=== PATIENT | male | born 1935 | race Caucasian/White ===

== ENCOUNTER 2019-03-28 09:46 | Observation (INO) ==
[2019-03-28 11:20] LABS: Basophils % 0.5 %; Eosinophils # 0.1 K/mcL (0.0-0.6); Eosinophils % 1.9 %; Hematocrit 38.6 % (37.5-50.1); Hemoglobin 13.1 g/dL (12.9-16.9); Immature Granulocytes % 0.5 % (0-4); Lymphocytes # 1.8 K/mcL (0.6-4.6); Lymphocytes % 28.1 %; Mean Corpuscular HGB Conc 33.9 g/dL (31.6-35.5); Mean Corpuscular Volume 88.3 fL (83.0-100.0); Mean Platelet Volume 10.4 fL (9.4-12.4); Monocytes # 0.4 K/mcL (0.0-1.3); Monocytes % 6.3 %; Platelet Count 146 K/mcL (140-400); Red Blood Count 4.37 M/mcL (4.19-5.50); Red Cell Distribution Width 13.2 % (11.5-14.5); Segmented Neutrophils % 62.7 %; White Blood Count 6.4 K/mcL (4.3-11.1)
[2019-03-28 11:47] LABS: Alanine Aminotransferase 29 Units/L (7-52); Albumin 4.1 g/dL (3.5-5.7); Albumin/Globulin Ratio 1.6 (1.1-2.2); Alkaline Phosphatase 66 Units/L (34-104); Aspartate Amino Transferase 19 Units/L (13-39); BUN/Creatinine Ratio 18 (6-26); Bilirubin,Total 1.3 mg/dL (0.3-1.0); Blood Urea Nitrogen 30 mg/dL (8-23); Calcium 8.8 mg/dL (8.6-10.3); Carbon Dioxide 26 mEq/L (23-29); Chloride 104 mEq/L (98-107); Globulin 2.5 g/dL (2.4-3.5); Glucose 108 mg/dL (70-105); Osmolality,Calculated 299 (280-300); Potassium 3.9 mEq/L (3.5-5.1); Sodium 141 mEq/L (136-145); Total Protein 6.6 g/dL (6.4-8.9); Troponin I < 0.03 ng/mL (< 0.04); eGFR For African Americans 48 (> 60); eGFR For Non-African Americans 39 (> 60)
[2019-03-28 11:49] LABS: INR 0.9; Prothrombin Time 10.7 Seconds (9.4-12.1)
[2019-03-28 11:55] LABS: Thyroid Stimulating Hormone 2.461 mcIU/mL (0.340-5.600)
[2019-03-28] MEDS ORDERED: Isovue-370 500 ML BOTTLE IVP ONE (11:59)
[2019-03-28 12:04] LABS: Bilirubin,Urine Negative (Negative); Blood,Urine Negative (Negative); Clarity,Urine Clear (Clear); Color,Urine Yellow (Yellow); Glucose,Urine (UA) Normal (Normal); Ketones,Urine Negative (Negative); Leukocyte Esterase,Urine Negative (Negative); Nitrite,Urine Negative (Negative); PH,Urine 6.5 pH Units (5.0-8.0); Protein,Urine 30 mg/dL (Neg-Trace); Urobilinogen,Urine Normal (Normal)
[2019-03-28 12:33] LABS: Bacteria,Urine None Seen per hpf (None-Few); RBC,Urine 0-3 per hpf (0-3); Squamous Epithelial Cell,Urine None Seen per lpf (None-Few)
[2019-03-28] MEDS ORDERED: amLODIPine 5 MG TABLET PO PRN (15:35)
[2019-03-29 04:54] LABS: Albumin 3.6 g/dL (3.5-5.7); Albumin/Globulin Ratio 1.6 (1.1-2.2); Bilirubin,Direct 0.2 mg/dL (0.0-0.2); Bilirubin,Indirect 0.6 mg/dL (0.0-1.0); Bilirubin,Total 0.8 mg/dL (0.3-1.0); Globulin 2.2 g/dL (2.4-3.5); Total Protein 5.8 g/dL (6.4-8.9)
[2019-03-29 04:55] LABS: Calcium 8.5 mg/dL (8.6-10.3); Potassium 4.1 mEq/L (3.5-5.1)
[2019-03-29 07:26] VITALS: BP 153/89
[2019-03-29] MEDS ORDERED: cloNIDine HCl 0.1 MG TABLET PO SCH (09:00)
[2019-03-29] MEDS ORDERED: Isosorbide MONOnitrate (24 HR) 60 MG TAB.ER.24H PO SCH (09:00)
[2019-03-29] MEDS ORDERED: Furosemide 20 MG TABLET PO SCH (09:00)
== END 2019-03-29 13:08 | disposition home or self-care (01) ==
LOC: 3BNU 09:46 → EMEROOARM 09:46 → 3BNU 14:40 → SUATTDRO 14:44
PROVIDERS: ADMIT Internal Medicine; ATTEND Internal Medicine

== ENCOUNTER 2021-12-10 09:04 | Inpatient (IN) ==
[2021-12-10] MEDS ORDERED: Acetaminophen IV 1,000 MG/100 ML BAG IVPB ONE (09:30)
[2021-12-10] MEDS ORDERED: Ondansetron 4 MG/2 ML VIAL IVP ONE (09:30)
[2021-12-10] MEDS ORDERED: Famotidine 20 MG/2 ML VIAL IVP ONE (09:30)
[2021-12-10] MEDS ORDERED: Ringers Solution, Lactated 1,000 ML IVC ONE (09:30)
[2021-12-10] MEDS ORDERED: Albuterol 2.5 MG/3 ML NEBULIZER IH ONE (09:45)
[2021-12-10] MEDS ORDERED: Naloxone 0.4 MG/ML INJ IVP PRN (10:03)
[2021-12-10] MEDS ORDERED: Albuterol 2.5 MG/3 ML NEBULIZER IH PRN (10:03)
[2021-12-10] MEDS ORDERED: Ondansetron 4 MG/2 ML VIAL IVP PRN (10:03)
[2021-12-10] MEDS ORDERED: Nitroglycerin 0.4 MG TAB.SUBL SL PRN (10:03)
[2021-12-10] MEDS ORDERED: CeFAZolin Syr 2,000MG/20 ML 2,000 MG/20 ML SYRINGE IVPB ONE (10:12)
[2021-12-10] MEDS ORDERED: MetroNIDAZOLE 500 MG/100 ML 500 MG/100 ML BAG IVPB ONE (10:12)
[2021-12-10] MEDS ORDERED: *HR* Propofol 200 MG/20 ML VIAL IVP ONE (10:25)
[2021-12-10] MEDS ORDERED: Ondansetron 4 MG/2 ML VIAL ONE (10:25)
[2021-12-10] MEDS ORDERED: *HR* Rocuronium Bromide 50 MG/5 ML VIAL ONE ×3 (10:25→13:29)
[2021-12-10] MEDS ORDERED: Lidocaine HCL 4 ML Topical Solution (Laryng-O-Jet Kit Sterile Pak) TP ONE (10:25)
[2021-12-10] MEDS ORDERED: *HR* FentaNYL (PF) 100 MCG/2 ML VIAL ONE ×2 (10:25→13:07)
[2021-12-10] MEDS ORDERED: Lidocaine -MPF 2% 2 ML VIAL ONE (10:26)
[2021-12-10] MEDS ORDERED: EPHEDrine sulfate 50 MG/10 ML VIAL IVP ONE (11:56)
[2021-12-10] MEDS ORDERED: Sugammadex Sodium 200 MG/2 ML VIAL IV ONE (15:31)
[2021-12-10] MEDS: *HR* HYDROmorphone PF 0.5 MG/0.5 ML SYRINGE IVP PRN ×2 (16:27→16:37)
[2021-12-10] MEDS ORDERED: *HR* HYDROmorphone PCA *PREMADE* 20 MG/1MG/ML (20mL) PCA VIAL IVC PRN (18:23)
[2021-12-10] MEDS ORDERED: *HR* Metoprolol 5 MG/5 ML VIAL IVP PRN (18:23)
[2021-12-10] MEDS: 0.9 % Sodium Chloride 1,000 ML IVC SCH (19:31)
[2021-12-10] MEDS: Acetaminophen IV 1,000 MG/100 ML BAG IVPB SCH (19:31)
[2021-12-10 19:43] LABS: Basophils % 0.1 %; Hematocrit 34.4 % (37.5-50.1); Hemoglobin 11.5 g/dL (12.9-16.9); Immature Granulocytes % 0.5 % (0-4); Lymphocytes # 0.6 K/mcL (0.6-4.6); Lymphocytes % 4.4 %; Mean Corpuscular HGB Conc 33.4 g/dL (31.6-35.5); Mean Corpuscular Hemoglobin 30.2 pg (28.0-33.3); Mean Corpuscular Volume 90.3 fL (83.0-100.0); Monocytes % 4.1 %; Neutrophils # 12.1 K/mcL (1.6-8.9); Platelet Count 165 K/mcL (140-400); Red Blood Count 3.81 M/mcL (4.19-5.50); Red Cell Distribution Width 13.2 % (11.5-14.5); Segmented Neutrophils % 90.9 %
[2021-12-10 19:45] LABS: Monocytes # 0.6 K/mcL (0.0-1.3); White Blood Count 13.3 K/mcL (4.3-11.1)
[2021-12-10 20:03] LABS: Calcium 8.3 mg/dL (8.6-10.3); Magnesium 1.8 mg/dL (1.6-2.6); Phosphorous 5.3 mg/dL (2.7-4.5); Potassium 3.4 mEq/L (3.5-5.1)
[2021-12-10] MEDS ORDERED: Ketorolac 30 MG/ML VIAL IVP ONE (21:00)
[2021-12-11 05:23] LABS: Magnesium 1.9 mg/dL (1.6-2.6); Phosphorous 5.4 mg/dL (2.7-4.5)
[2021-12-11] MEDS: 0.9 % Sodium Chloride 1,000 ML IVC SCH ×2 (06:04→14:37)
[2021-12-11 06:26] LABS: Basophils % 0.1 %; Hematocrit 31.5 % (37.5-50.1); Hemoglobin 10.3 g/dL (12.9-16.9); Immature Granulocytes % 0.5 % (0-4); Lymphocytes # 0.8 K/mcL (0.6-4.6); Lymphocytes % 6.6 %; Mean Corpuscular HGB Conc 32.7 g/dL (31.6-35.5); Mean Corpuscular Hemoglobin 30.1 pg (28.0-33.3); Mean Corpuscular Volume 92.1 fL (83.0-100.0); Mean Platelet Volume 10.6 fL (9.4-12.4); Monocytes # 0.5 K/mcL (0.0-1.3); Monocytes % 4.5 %; Neutrophils # 10.6 K/mcL (1.6-8.9); Platelet Count 163 K/mcL (140-400); Red Blood Count 3.42 M/mcL (4.19-5.50); Red Cell Distribution Width 13.2 % (11.5-14.5); Segmented Neutrophils % 88.3 %
[2021-12-11] MEDS: Acetaminophen IV 1,000 MG/100 ML BAG IVPB SCH ×4 (06:36→23:59)
[2021-12-11] MEDS ORDERED: *HR* Enoxaparin 40 MG/0.4 ML SYRINGE SQ SCH (07:00)
[2021-12-11 08:26] LABS: Calcium 7.3 mg/dL (8.6-10.3); Potassium 4.3 mEq/L (3.5-5.1)
[2021-12-11] MEDS ORDERED: Ketorolac 30 MG/ML VIAL IVP SCH (09:00)
[2021-12-11] MEDS: Pantoprazole 40 MG VIAL IVP SCH (09:23)
[2021-12-11] MEDS: Levothyroxine Sodium 100 MCG VIAL IVP SCH (09:23)
[2021-12-11] MEDS ORDERED: 0.9 % Sodium Chloride 1,000 ML IVC ONE (11:39)
[2021-12-11] MEDS: Furosemide 40 MG/4 ML VIAL IVP SCH (20:20)
[2021-12-11] MEDS ORDERED: Furosemide 40 MG TABLET PO SCH (21:00)
[2021-12-12] MEDS: 0.9 % Sodium Chloride 1,000 ML IVC SCH (05:35)
[2021-12-12] MEDS: *HR* Heparin 5,000 UNIT/ML VIAL SQ SCH ×2 (05:43→20:17)
[2021-12-12] MEDS: Acetaminophen IV 1,000 MG/100 ML BAG IVPB SCH ×3 (05:43→20:17)
[2021-12-12 06:54] LABS: Basophils % 0.1 %; Hematocrit 31.5 % (37.5-50.1); Hemoglobin 10.3 g/dL (12.9-16.9); Immature Granulocytes % 0.8 % (0-4); Lymphocytes # 1.4 K/mcL (0.6-4.6); Lymphocytes % 8.4 %; Mean Corpuscular HGB Conc 32.7 g/dL (31.6-35.5); Mean Corpuscular Hemoglobin 30.2 pg (28.0-33.3); Mean Corpuscular Volume 92.4 fL (83.0-100.0); Mean Platelet Volume 10.8 fL (9.4-12.4); Monocytes % 6.4 %; Neutrophils # 13.6 K/mcL (1.6-8.9); Platelet Count 144 K/mcL (140-400); Red Blood Count 3.41 M/mcL (4.19-5.50); Red Cell Distribution Width 13.7 % (11.5-14.5); Segmented Neutrophils % 84.3 %; White Blood Count 16.1 K/mcL (4.3-11.1)
[2021-12-12 07:13] LABS: Magnesium 1.9 mg/dL (1.6-2.6); Phosphorous 3.5 mg/dL (2.7-4.5); Potassium 3.4 mEq/L (3.5-5.1)
[2021-12-12] MEDS: Furosemide 40 MG/4 ML VIAL IVP SCH ×2 (09:32→20:17)
[2021-12-12] MEDS: Pantoprazole 40 MG VIAL IVP SCH (09:32)
[2021-12-12] MEDS: Levothyroxine Sodium 100 MCG VIAL IVP SCH (09:33)
[2021-12-12] MEDS: D5% in 0.45% NACL w KCl 20 MEQ/1,000 ML MLS IVC SCH (09:35)
[2021-12-12] MEDS: amLODIPine 5 MG TABLET PO SCH (10:11)
[2021-12-12 22:58] LABS: Albumin 3.4 g/dL (3.5-5.7); Albumin/Globulin Ratio 1.3 (1.1-2.2); Bilirubin,Direct 0.3 mg/dL (0.0-0.2); Bilirubin,Indirect 0.8 mg/dL (0.0-1.0); Bilirubin,Total 1.1 mg/dL (0.3-1.0); Globulin 2.7 g/dL (2.4-3.5); Total Protein 6.1 g/dL (6.4-8.9)
[2021-12-13] MEDS: D5% in 0.45% NACL w KCl 20 MEQ/1,000 ML MLS IVC SCH ×2 (03:28→17:33)
[2021-12-13] MEDS: Acetaminophen IV 1,000 MG/100 ML BAG IVPB SCH ×5 (05:38→23:35)
[2021-12-13] MEDS: *HR* Heparin 5,000 UNIT/ML VIAL SQ SCH ×2 (05:38→17:29)
[2021-12-13 07:26] LABS: Basophils % 0.2 %; Hematocrit 29.3 % (37.5-50.1); Hemoglobin 9.4 g/dL (12.9-16.9); Immature Granulocytes % 1.9 % (0-4); Lymphocytes # 1.2 K/mcL (0.6-4.6); Lymphocytes % 6.4 %; Mean Corpuscular HGB Conc 32.1 g/dL (31.6-35.5); Mean Corpuscular Hemoglobin 30.5 pg (28.0-33.3); Mean Corpuscular Volume 95.1 fL (83.0-100.0); Mean Platelet Volume 11.3 fL (9.4-12.4); Monocytes # 1.1 K/mcL (0.0-1.3); Monocytes % 6.2 %; Neutrophils # 15.3 K/mcL (1.6-8.9); Platelet Count 128 K/mcL (140-400); Red Blood Count 3.08 M/mcL (4.19-5.50); Red Cell Distribution Width 14.3 % (11.5-14.5); Segmented Neutrophils % 85.3 %
[2021-12-13] MEDS: Furosemide 40 MG/4 ML VIAL IVP SCH ×2 (08:38→20:47)
[2021-12-13] MEDS: Pantoprazole 40 MG VIAL IVP SCH (08:39)
[2021-12-13 08:40] LABS: Calcium 8.4 mg/dL (8.6-10.3); Potassium 3.8 mEq/L (3.5-5.1)
[2021-12-13] MEDS: amLODIPine 5 MG TABLET PO SCH (09:09)
[2021-12-13] MEDS: Levothyroxine Sodium 100 MCG VIAL IVP SCH (10:49)
[2021-12-13] MEDS: 0.9 % Sodium Chloride 1,000 ML IVC SCH (17:30)
[2021-12-14] MEDS: Acetaminophen IV 1,000 MG/100 ML BAG IVPB SCH ×4 (05:38→23:05)
[2021-12-14] MEDS: *HR* Heparin 5,000 UNIT/ML VIAL SQ SCH ×2 (05:41→16:45)
[2021-12-14] MEDS: amLODIPine 5 MG TABLET PO SCH (07:39)
[2021-12-14] MEDS: Furosemide 40 MG/4 ML VIAL IVP SCH (07:41)
[2021-12-14] MEDS: Pantoprazole 40 MG VIAL IVP SCH (07:41)
[2021-12-14] MEDS: Levothyroxine Sodium 100 MCG VIAL IVP SCH (07:41)
[2021-12-14 12:03] LABS: Basophils # 0.1 K/mcL (0.0-0.2); Basophils % 0.4 %; Eosinophils % 0.1 %; Hematocrit 33.3 % (37.5-50.1); Hemoglobin 10.7 g/dL (12.9-16.9); Immature Granulocytes % 3.3 % (0-4); Lymphocytes # 1.3 K/mcL (0.6-4.6); Lymphocytes % 7.3 %; Mean Corpuscular HGB Conc 32.1 g/dL (31.6-35.5); Mean Corpuscular Hemoglobin 29.7 pg (28.0-33.3); Mean Corpuscular Volume 92.5 fL (83.0-100.0); Mean Platelet Volume 10.7 fL (9.4-12.4); Monocytes # 0.8 K/mcL (0.0-1.3); Monocytes % 4.3 %; Neutrophils # 15.3 K/mcL (1.6-8.9); Platelet Count 146 K/mcL (140-400); Red Cell Distribution Width 13.9 % (11.5-14.5); Segmented Neutrophils % 84.6 %; White Blood Count 18.1 K/mcL (4.3-11.1)
[2021-12-14 12:17] LABS: Calcium 8.8 mg/dL (8.6-10.3); Magnesium 1.8 mg/dL (1.6-2.6); Potassium 3.1 mEq/L (3.5-5.1)
[2021-12-14] MEDS: Furosemide 40 MG TABLET PO SCH (16:37)
[2021-12-14] MEDS: 0.9 % Sodium Chloride 1,000 ML IVC SCH (16:42)
[2021-12-15 03:15] LABS: Basophils # 0.1 K/mcL (0.0-0.2); Basophils % 0.4 %; Eosinophils # 0.1 K/mcL (0.0-0.6); Eosinophils % 0.3 %; Hematocrit 30.1 % (37.5-50.1); Hemoglobin 9.7 g/dL (12.9-16.9); Immature Granulocytes % 3.9 % (0-4); Lymphocytes # 1.8 K/mcL (0.6-4.6); Lymphocytes % 11.1 %; Mean Corpuscular HGB Conc 32.2 g/dL (31.6-35.5); Mean Corpuscular Hemoglobin 29.7 pg (28.0-33.3); Mean Platelet Volume 10.7 fL (9.4-12.4); Monocytes # 0.9 K/mcL (0.0-1.3); Monocytes % 5.6 %; Neutrophils # 12.6 K/mcL (1.6-8.9); Platelet Count 162 K/mcL (140-400); Red Blood Count 3.27 M/mcL (4.19-5.50); Segmented Neutrophils % 78.7 %
[2021-12-15 03:35] LABS: Calcium 8.3 mg/dL (8.6-10.3); Potassium 3.1 mEq/L (3.5-5.1)
[2021-12-15] MEDS: *HR* Heparin 5,000 UNIT/ML VIAL SQ SCH ×2 (05:47→17:45)
[2021-12-15] MEDS: Acetaminophen IV 1,000 MG/100 ML BAG IVPB SCH (05:47)
[2021-12-15] MEDS: amLODIPine 5 MG TABLET PO SCH (08:20)
[2021-12-15] MEDS: Furosemide 40 MG TABLET PO SCH ×2 (08:21→17:46)
[2021-12-15] MEDS: Pantoprazole 40 MG VIAL IVP SCH (08:21)
[2021-12-15] MEDS: Levothyroxine Sodium 100 MCG VIAL IVP SCH (08:21)
[2021-12-15] MEDS ORDERED: *HR* OxyCODONE Immed Rel 5 MG TABLET PO PRN (09:14)
[2021-12-15] MEDS: Acetaminophen 325 MG TABLET PO SCH ×2 (11:51→17:46)
[2021-12-16 04:23] LABS: Basophils # 0.1 K/mcL (0.0-0.2); Basophils % 0.9 %; Eosinophils # 0.1 K/mcL (0.0-0.6); Eosinophils % 1.1 %; Hematocrit 29.5 % (37.5-50.1); Hemoglobin 9.7 g/dL (12.9-16.9); Immature Granulocytes % 5.3 % (0-4); Lymphocytes # 1.9 K/mcL (0.6-4.6); Lymphocytes % 17.2 %; Mean Corpuscular HGB Conc 32.9 g/dL (31.6-35.5); Mean Corpuscular Hemoglobin 29.9 pg (28.0-33.3); Mean Platelet Volume 10.9 fL (9.4-12.4); Monocytes # 0.8 K/mcL (0.0-1.3); Monocytes % 7.1 %; Neutrophils # 7.7 K/mcL (1.6-8.9); Nucleated Red Blood Cells 0.2 /100 WBC (0); Platelet Count 149 K/mcL (140-400); Red Blood Count 3.24 M/mcL (4.19-5.50); Red Cell Distribution Width 13.8 % (11.5-14.5); Segmented Neutrophils % 68.4 %; White Blood Count 11.2 K/mcL (4.3-11.1)
[2021-12-16 04:44] LABS: Calcium 8.7 mg/dL (8.6-10.3); Magnesium 1.8 mg/dL (1.6-2.6); Potassium 3.2 mEq/L (3.5-5.1)
[2021-12-16] MEDS: Acetaminophen 325 MG TABLET PO SCH ×4 (05:29→16:39)
[2021-12-16] MEDS: *HR* Heparin 5,000 UNIT/ML VIAL SQ SCH (06:00)
[2021-12-16] MEDS: Pantoprazole 40 MG VIAL IVP SCH (08:40)
[2021-12-16] MEDS: Furosemide 40 MG TABLET PO SCH ×2 (08:40→16:39)
[2021-12-16] MEDS: amLODIPine 5 MG TABLET PO SCH (08:40)
[2021-12-16 14:53] VITALS: BP 115/73; PULSE 92; TEMP 98; O2SAT 95
== END 2021-12-16 17:05 | disposition home health service (06) | DRG 329 ==
LOC: SAMDAY 09:04 → 3ANU 17:54 → SUATTDRO 17:54
PROVIDERS: ADMIT Surgery; ATTEND Internal Medicine